=== PATIENT | female | born 1945 | race Caucasian/White ===

== ENCOUNTER 2018-11-21 06:49 | Observation (INO) ==
[2018-11-21] MEDS ORDERED: 0.9 % Sodium Chloride 1,000 ML IVC ONE (07:47)
--- NOTE | 2018-11-21 07:50 | Emergency Department Note ---
Disposition Clinical Impression: Pyelonephritis Disposition: Admitted As Inpatient Condition: Good Time of Disposition: 10:31 General Adult HPI - General Chief complaint: ED General Medical Stated complaint: "Sick with the chills" Time Seen by Provider: 11/21/18 07:16 Source: patient Mode of arrival: private vehicle Limitations: no limitations Nursing Notes Reviewed: Yes Vital Signs Reviewed: Yes - History of Present Illness HPI Narrative: Patient is a 73-year-old female with no significant past medical history that is coming in today complaining of chills, worsening urinary symptoms. Patient states that she developed the symptoms of a urinary tract infection approximately one week ago, her primary complaint was frequency, and a foul odor to her urine. Patient tried taking cranberry juice as well as [id number] Azo tablets without relief. Patient states that Thursday night, 3 days ago, she developed severe headache, back pain, chills. Patient states that the last time she had a UTI was approximately 3 years ago, she has never had to be hospitalized for these issues. Patient's main urinary complaints are frequency, she is not complaining of any dysuria. Patient also complains of not really being able to eat or drink anything since Thursday, and she believes that she may also be dehydrated. Patient also states that she has had some nasal congestion over the last couple of days, but denies sore throat, cough, runny nose. Patient also states that she felt a little nauseated yesterday, but denies vomiting, constipation, diarrhea. Pain Scale: 9 - Related Data Home Medications Medication Instructions Recorded Confirmed Calcium Carbonate/Vitamin D3 1 each PO BID 11/21/18 11/21/18 [Calcium 600 + Vit D Tablet] Cranberry Fruit Extract [Cranberry] 250 mg PO DAILY 11/21/18 11/21/18 Diphenoxylate/Atropine [Lomotil 1 each PO BID PRN 11/21/18 11/21/18 2.5 mg/0.025 mg] Multivit W-Mn/FA/Lycop/Lut/Ala 1 each PO DAILY 11/21/18 11/21/18 [Multi-Betic Tablet] Ranitidine HCl [Acid Cook Tortilla] 150 mg PO HS 11/21/18 11/21/18 Vit A/Vit C/Vit E/Zinc/Copper 1 each PO DAILY 11/21/18 11/21/18 [Preservision Areds Tablet] Allergies Allergy/AdvReac Type Severity Reaction Status Date / Time No Known Allergies Allergy Verified 01/09/16 10:38 Review of Systems: All systems ED: reviewed and negative except as stated. Constitutional: Denies: fever Reports: chills ENT ED: Denies: ear pain, throat pain Reports: nasal congestion Cardiovascular: Denies: chest pain, palpitations Respiratory: Denies: cough, dyspnea Gastrointestinal: Denies: abdominal pain, vomiting, diarrhea, constipation Reports: nausea Genitourinary: Denies: urgency, dysuria, Reports: frequency Musculoskeletal: Denies: neck pain Reports: lower middle back pain Integumentary: Denies: rash, abrasion Neurological: Denies: weakness, numbness, paresthesias Reports: headache Psychiatric: Denies: anxiety, depression Endocrine: Denies: fatigue, heat or cold intolerance Hematological/Lymphatic: Denies: easy bleeding, easy bruising Allergic/Immunologic: Denies: facial swelling, urticaria Past Medical History - Past Medical History Medical history: Reports: GERD, hyperlipidemia Psychiatric history: Reports: no psych history - Social History Smoking Status: Former smoker Smokeless Tobacco Status: No Alcohol use: Reports: none Drug use: Reports: none Physical Exam General: A&O x 3. No acute distress. Well developed, well nourished. Head: atraumatic, normocephalic. ENT: No conjunctival injection, no scleral icterus. PERRLA. EOMI. Oropharynx non- erythematous. mucous membranes tacky. Neuro: No focal deficits, no speech deficit, no facial droop, mentating well. BUE/BLE Str 5/5. Pulm: Lungs CTAB A/P. No wheezes, rales, ronchi. Cardio: RRR no m/r/g. Chest not tender to palpation. Abd: Soft, non-distended. Normoactive bowel sounds.No guarding. Non rigid. Suprapubic abdominal pain with palpation. Back: Mildly tender to palpation over bilateral CVAs. Extremities: Radial pulses 2+ alis, dorsalis pedis/posterior tibialis 2+ alis. No LE edema. No cyanosis, clubbing. Skin: warm, dry, intact. No rashes. Psych: Appropriate mood and affect. Answers questions appropriately. Cooperative with exam. - General Limitations: no limitations General appearance: alert, in no apparent distress Course Course Narrative: Ddx includes but is not limited to: cystitis, pyelonephritis, urosepsis, dehydration Workup will include but is not limited to: EKG, UA + culture, CBC, BMP, lactic acid, blood cultures, Mg, Phos. Disposition pending. Vital Signs Temperature 98.6 F 11/21/18 06:55 Pulse Rate 102 11/21/18 06:55 Respiratory Rate 18 11/21/18 06:55 Blood Pressure 121/77 11/21/18 06:55 O2 Sat by Pulse Oximetry 95 11/21/18 06:55 Temperature 98.6 F 11/21/18 06:55 Pulse Rate 103 11/21/18 09:03 Respiratory Rate 14 11/21/18 09:03 Blood Pressure 137/78 11/21/18 09:03 O2 Sat by Pulse Oximetry 96 11/21/18 09:03 Oxygen Delivery Oxygen Delivery Room Air Medical Decision Making - MDM Narrative Medical decision making narrative: Pt's lab work revealed a leukocytosis with neutrophil predominance, and UA was consistent with UTI with positive nitrates and leukocyte esterase. Pt was given a 1L NaCl bolus as well as a gram of rocephin to cover for likely urinary pathogens. Pt was admitted to Dr. Liu, hospitalist, who agreed to accept the patient for observation. Patient was given an opportunity to ask questions at bedside and all of their concerns were addressed. Patient verbalized understanding and agreement with plan of care. Pt remained stable while in the department. - Medical Records Medical records reviewed: Yes I reviewed the patient's medical records. - Lab Data Lab results reviewed: Yes I reviewed the patient's lab results. Result diagrams: 11/21/18 07:56 11/21/18 07:56 Lab Results 11/21/18 11/21/18 11/21/18 Range/Units 07:56 07:56 07:56 WBC 18.8 H (4.3-11.1) K/mcL RBC 4.95 (3.82-4.97) M/mcL Hgb 14.3 (11.5-15.4) g/dL Hct 43.9 (35.3-44.9) % MCV 88.7 (83.0-100.0) fL MCH 28.9 (28.0-33.3) pg MCHC 32.6 (31.6-35.5) g/dL RDW 13.4 (11.5-14.5) % Plt Count 229 (140-400) K/mcL MPV 10.0 (9.4-12.4) fL Immature Gran % 0.7 (0-4) % Seg Neutrophils % 82.5 % Lymphocytes % 9.8 % Monocytes % 6.8 % Eosinophils % 0.0 % Basophils % 0.2 % Neutrophils # 15.5 H (1.6-8.9) K/mcL Lymphocytes # 1.9 (0.6-4.6) K/mcL Monocytes # 1.3 (0.0-1.3) K/mcL Eosinophils # 0.0 (0.0-0.6) K/mcL Basophils # 0.0 (0.0-0.2) K/mcL Sodium 135 L (136-145) mEq/L Potassium 3.6 (3.5-5.1) mEq/L Chloride 98 (98-107) mEq/L Carbon Dioxide 25 (23-29) mEq/L BUN 12 (8-23) mg/dL Creatinine 0.79 (0.60-1.20) mg/dL Est GFR ( Amer) > 60 (> 60) Est GFR (Non-Af Amer) > 60 (> 60) BUN/Creatinine Ratio 15 (6-26) Glucose 120 H (70-105) mg/dL Calculated Osmolality 281 (280-300) Lactic Acid 1.9 (0.5-2.2) mmol/L Calcium 9.3 (8.6-10.3) mg/dL Phosphorus 2.2 L (2.7-4.5) mg/dL Magnesium 2.0 (1.6-2.6) mg/dL Troponin I < 0.03 (< 0.04) ng/mL Urine Color (Yellow) Urine Clarity (Clear) Urine pH (5.0-8.0) pH Units Ur Specific [place] (1.010-1.025) Urine Protein (Neg-Trace) mg/dL Urine Glucose (UA) (Normal) mg/dL Urine Ketones (Negative) mg/dL Urine Blood (Negative) Urine Nitrite (Negative) Urine Bilirubin (Negative) Urine Urobilinogen (Normal) mg/dL Ur Leukocyte Esterase (Negative) Urine Microscopic RBC (0-3) per hpf Urine Microscopic WBC (0-3) per hpf Ur Squamous Epith Cells (None-Few) per lpf Urine Bacteria (None-Few) per hpf Hyaline Casts (None-Few) per lpf Ur Culture Indicated? (NO) 11/21/18 Range/Units 09:11 WBC (4.3-11.1) K/mcL RBC (3.82-4.97) M/mcL Hgb (11.5-15.4) g/dL Hct (35.3-44.9) % MCV (83.0-100.0) fL MCH (28.0-33.3) pg MCHC (31.6-35.5) g/dL RDW (11.5-14.5) % Plt Count (140-400) K/mcL MPV (9.4-12.4) fL Immature Gran % (0-4) % Seg Neutrophils % % Lymphocytes % % Monocytes % % Eosinophils % % Basophils % % Neutrophils # (1.6-8.9) K/mcL Lymphocytes # (0.6-4.6) K/mcL Monocytes # (0.0-1.3) K/mcL Eosinophils # (0.0-0.6) K/mcL Basophils # (0.0-0.2) K/mcL Sodium (136-145) mEq/L Potassium (3.5-5.1) mEq/L Chloride (98-107) mEq/L Carbon Dioxide (23-29) mEq/L BUN (8-23) mg/dL Creatinine (0.60-1.20) mg/dL Est GFR ( Amer) (> 60) Est GFR (Non-Af Amer) (> 60) BUN/Creatinine Ratio (6-26) Glucose (70-105) mg/dL Calculated Osmolality (280-300) Lactic Acid (0.5-2.2) mmol/L Calcium (8.6-10.3) mg/dL Phosphorus (2.7-4.5) mg/dL Magnesium (1.6-2.6) mg/dL Troponin I (< 0.04) ng/mL Urine Color Yellow (Yellow) Urine Clarity Cloudy A (Clear) Urine pH 6.0 (5.0-8.0) pH Units Ur Specific [place] 1.012 (1.010-1.025) Urine Protein 100 H (Neg-Trace) mg/dL Urine Glucose (UA) Normal (Normal) mg/dL Urine Ketones 80 H (Negative) mg/dL Urine Blood Moderate H (Negative) Urine Nitrite Positive A (Negative) Urine Bilirubin Negative (Negative) Urine Urobilinogen Normal (Normal) mg/dL Ur Leukocyte Esterase Large H (Negative) Urine Microscopic RBC 5-15 H (0-3) per hpf Urine Microscopic WBC TNTC H (0-3) per hpf Ur Squamous Epith Cells Moderate H (None-Few) per lpf Urine Bacteria Many H (None-Few) per hpf Hyaline Casts None Seen (None-Few) per lpf Ur Culture Indicated? YES A (NO) - EKG Data EKG #1 EKG attestation: Yes I reviewed and interpreted this EKG. EKG results narrative: HR 92, rhythm sinus, axis normal. CA 153, QRS 93, QTc 421. No evidence of ST elevation or depression. No evidence of LVH. Attestation Statement - Attestation Attestation: I, Lucio Severino, examined this patient and my medical decision-making was reviewed with the EMPLOYEE BENEFITS DIRECTOR/PA/Advanced Practice Nurse/Resident Physician. I agree with the documented findings, disposition and treatment plan as described except to the extent set forth below. 73-year-old female presents emergency Department with concerns of fever and chills. Patient states she has increased urinary frequency. She states she had similar symptoms with her previous urinary tract infection. Patient is tachycardic on initial evaluation. She had an elevated white blood cell count. Urinalysis showed likely urinary tract infection. She was given antibiotics in the emergency department for treatment of likely UTI versus pyelonephritis. Patient is comfortable with the plan for admission the hospital for further care and evaluation of possible sepsis.
[2018-11-21 08:05] LABS: Basophils % 0.2 %; Hematocrit 43.9 % (35.3-44.9); Hemoglobin 14.3 g/dL (11.5-15.4); Immature Granulocytes % 0.7 % (0-4); Lymphocytes # 1.9 K/mcL (0.6-4.6); Lymphocytes % 9.8 %; Mean Corpuscular HGB Conc 32.6 g/dL (31.6-35.5); Mean Corpuscular Hemoglobin 28.9 pg (28.0-33.3); Mean Corpuscular Volume 88.7 fL (83.0-100.0); Monocytes # 1.3 K/mcL (0.0-1.3); Monocytes % 6.8 %; Neutrophils # 15.5 K/mcL (1.6-8.9); Platelet Count 229 K/mcL (140-400); Red Blood Count 4.95 M/mcL (3.82-4.97); Red Cell Distribution Width 13.4 % (11.5-14.5); Segmented Neutrophils % 82.5 %
[2018-11-21 08:23] LABS: BUN/Creatinine Ratio 15 (6-26); Blood Urea Nitrogen 12 mg/dL (8-23); Calcium 9.3 mg/dL (8.6-10.3); Carbon Dioxide 25 mEq/L (23-29); Chloride 98 mEq/L (98-107); Glucose 120 mg/dL (70-105); Osmolality,Calculated 281 (280-300); Phosphorous 2.2 mg/dL (2.7-4.5); Potassium 3.6 mEq/L (3.5-5.1); Sodium 135 mEq/L (136-145); Troponin I < 0.03 ng/mL (< 0.04); eGFR For Non-African Americans > 60 (> 60)
[2018-11-21] MEDS ORDERED: Acetaminophen 325 MG TABLET PO ONE (09:09)
[2018-11-21] MEDS ORDERED: cefTRIAXone 1,000 MG in 0.9 % Sodium Chloride Mini Bag 100 ML IVPB ONE (09:11)
[2018-11-21 09:15] LABS: Bilirubin,Urine Negative (Negative); Blood,Urine Moderate (Negative); Clarity,Urine Cloudy (Clear); Color,Urine Yellow (Yellow); Glucose,Urine (UA) Normal (Normal); Ketones,Urine 80 mg/dL (Negative); Leukocyte Esterase,Urine Large (Negative); Nitrite,Urine Positive (Negative); Protein,Urine 100 mg/dL (Neg-Trace); Specific Gravity,Urine 1.012 (1.010-1.025); Urobilinogen,Urine Normal (Normal)
[2018-11-21 09:18] LABS: Bacteria,Urine Many per hpf (None-Few); Hyaline Casts,Urine None Seen per lpf (None-Few); Squamous Epithelial Cell,Urine Moderate per lpf (None-Few); WBC,Urine TNTC per hpf (0-3)
--- NOTE | 2018-11-21 12:41 | Internal Med History&Physical ---
Date of Encounter: 11/21/18 Time of Encounter: 10:00 Internal Medicine - H&P: HPI Chief complaint: Dysuria Admitted From: Home Plans for Post Hospital Care: Home History of present illness: Patient is a 73-year-old female with past medical history significant for IBS, GERD and macular degeneration who presents the ER due to urinary urgency and dysuria. Patient reports of developing lower abdominal discomfort with fever/chills in addition to urinary urgency and dysuria. Patient was concerned that she had UTIs and decided to come to the ER for evaluation. In the ER, patient was found to have leukocytosis with white blood cell count of 18.8 and urinalysis with pyuria. Patient will be admitted to the observation unit for management of UTI. Past Med Surg Social Fam HX - Past Medical History Medical history: GERD, hyperlipidemia Additional medical history: IBS Psychiatric history: no psych history - Past Surgical History Additional surgical history: Ortho- pins elbow - Social History Smoking Status: Former smoker Smokeless Tobacco Status: No Alcohol use: none Drug use: none - Additional Family History Additional family history: Dad coronary arterial disease Internal Medicine - H&P: Meds Biotin Plus-Calcium & Vit D3 08/21/16 [History] Ciprofloxacin HCl [Cipro] 500 mg PO BID #14 tablet 08/21/16 [Rx] Cranberry 08/21/16 [History] Lomotil 2.5 mg/0.025 mg 08/21/16 [History] Pantoprazole Sodium 08/21/16 [History] Reclast 5 MG/100 ML 08/21/16 [History] Simvastatin 08/21/16 [History] Allergy/AdvReac Type Severity Reaction Status Date / Time No Known Allergies Allergy Verified 01/09/16 10:38 All Systems PM: A 10-system review of systems was performed and is negative for pertinent findings except as documented above in the HPI. - Constitutional Vitals: Temp Pulse Resp BP Pulse Ox 98.6 F 96 24 135/73 94 11/21/18 06:55 11/21/18 11:24 11/21/18 11:24 11/21/18 11:24 11/21/18 11:24 Exam: General appearance: Present: A&O X 3, no acute distress - Head Head exam: Present: normocephalic - Eye Eye exam: Present: normal appearance - ENT ENT exam: Present: mucous membranes moist - Respiratory Respiratory exam: Present: CTAB. Absent: accessory muscle use, rales, rhonchi, wheezes - Cardiovascular Cardiovascular exam: Present: RRR, +S1, +S2. Absent: diastolic murmur, gallop, rubs, systolic murmur - GI/Abdominal GI/Abdominal exam: Present: normal bowel sounds, soft, no peritoneal signs. Absent: distended, tenderness - Extremities Exam Extremities exam: Absent: pedal edema - Neurological Exam Neurological exam: Present: alert, oriented X3, no focal deficits. Absent: altered - Psychiatric Psychiatric exam: -normal mood Skin exam: -normal color Internal Med - H&P Results - Labs CBC & Chem 7: 11/21/18 07:56 11/21/18 07:56 Labs: Short CBC 11/21/18 Range/Units 07:56 WBC 18.8 H (4.3-11.1) K/mcL Hgb 14.3 (11.5-15.4) g/dL Hct 43.9 (35.3-44.9) % Plt Count 229 (140-400) K/mcL Neutrophils # 15.5 H (1.6-8.9) K/mcL BMP 11/21/18 07:56 Sodium 135 L Potassium 3.6 Chloride 98 Carbon Dioxide 25 BUN 12 Creatinine 0.79 Glucose 120 H Calcium 9.3 Cardiac Enzymes 11/21/18 Range/Units 07:56 Troponin I < 0.03 (< 0.04) ng/mL Urine 11/21/18 Range/Units 09:11 Urine Color Yellow (Yellow) Urine Clarity Cloudy A (Clear) Urine pH 6.0 (5.0-8.0) pH Units Ur Specific [place] 1.012 (1.010-1.025) Urine Protein 100 H (Neg-Trace) mg/dL Urine Glucose (UA) Normal (Normal) mg/dL - Assessment and Plan (1) UTI (urinary tract infection) Current Visit: Yes Status: Acute Assessment and plan: Patient reports of dysuria and urinary urgency found to have leukocytosis with white blood count of 18.8 and pyuria on urinalysis; urine cultures pending Will continue IV Cipro started in the ER. Qualifiers: Urinary tract infection type: acute cystitis Qualified Code(s): N30.00 - Acute cystitis without hematuria (2) IBS (irritable bowel syndrome) Current Visit: Yes Status: Acute Assessment and plan: Continue home medications Qualifiers: Irritable bowel syndrome type: unspecified Qualified Code(s): K58.9 - Irritable bowel syndrome without diarrhea (3) GERD (gastroesophageal reflux disease) Current Visit: Yes Status: Acute Assessment and plan: Continue home medications Qualifiers: Esophagitis presence: esophagitis presence not specified Qualified Code(s): K21.9 - Gastro-esophageal reflux disease without esophagitis (4) DVT prophylaxis Current Visit: Yes Status: Acute Assessment and plan: Subcutaneous heparin - Time Spent With Patient Total time spent is greater than 50% in coordination of care (as documented) at patient's floor/unit and/or counseling patient:
[2018-11-21] MEDS ORDERED: Naloxone 0.4 MG/ML INJ IVP PRN (12:48)
[2018-11-21] MEDS: *HR* Heparin 5,000 UNIT/ML VIAL SQ SCH ×2 (15:10→21:22)
[2018-11-21] MEDS ORDERED: diazePAM 2 MG TABLET PO ONE (21:28)
[2018-11-22 05:30] LABS: Basophils % 0.2 %; Eosinophils % 0.1 %; Hematocrit 34.6 % (35.3-44.9); Immature Granulocytes % 0.7 % (0-4); Lymphocytes # 1.7 K/mcL (0.6-4.6); Lymphocytes % 13.9 %; Mean Corpuscular HGB Conc 33.5 g/dL (31.6-35.5); Mean Corpuscular Hemoglobin 28.6 pg (28.0-33.3); Mean Corpuscular Volume 85.4 fL (83.0-100.0); Monocytes # 1.4 K/mcL (0.0-1.3); Monocytes % 11.3 %; Neutrophils # 9.1 K/mcL (1.6-8.9); Platelet Count 212 K/mcL (140-400); Red Blood Count 4.05 M/mcL (3.82-4.97); Red Cell Distribution Width 13.4 % (11.5-14.5); Segmented Neutrophils % 73.8 %
[2018-11-22 05:38] LABS: Hemoglobin 11.6 g/dL (11.5-15.4)
[2018-11-22 05:49] LABS: BUN/Creatinine Ratio 13 (6-26); Blood Urea Nitrogen 9 mg/dL (8-23); Calcium 8.3 mg/dL (8.6-10.3); Carbon Dioxide 26 mEq/L (23-29); Chloride 100 mEq/L (98-107); Glucose 130 mg/dL (70-105); Osmolality,Calculated 278 (280-300); Potassium 3.5 mEq/L (3.5-5.1); Sodium 134 mEq/L (136-145); eGFR For Non-African Americans > 60 (> 60)
[2018-11-22] MEDS: *HR* Heparin 5,000 UNIT/ML VIAL SQ SCH ×2 (06:07→14:08)
--- NOTE | 2018-11-22 08:37 | Internal Med Progress Note ---
<Anahy Fontenot N - Last Filed: 11/22/18 14:37> Hospitalist Progress Note - Encounter Date of Encounter: 11/22/18 Time of Encounter: 08:37 - Subjective Interval History: Ms. Angela is a 73-year-old female who presented to the emergency department yesterday for evaluation of UTI-like symptoms. She states that she had been havi ng these symptoms for several days, which she had attempted to treat by increasing her intake of cranberry some: However, she reports that she became "deathly ill" and was beginning to be "out of her head ", which prompted her to bring her to the emergency department. She was found to have s ignificant leukocytosis, with WBC count 18.8 and UA consistent with acute UTI. She was admitted to the hospital and started on IV ciprofloxacin 400mg BID. On evaluation this morning, and patient states that she is feeling much better, and denies any fevers or chills since hospital admission. She reports improvement in symptoms of UTI, including dysuria. She does report that she had "an accident" t his morning in the bathroom, which she attributes to her IBD. She denies any acute complaints or concerns at this time. - Exam Vitals: Temp Pulse Resp BP Pulse Ox 98.5 F 85 15 128/83 96 11/22/18 06:45 11/22/18 06:45 11/22/18 06:45 11/22/18 06:45 11/22/18 07:49 Exam: GENERAL: Well-developed, well-nourished adult female in no acute distress. HEENT: Atraumatic and normocephalic. CARDIOVASCULAR: Regular rate and rhythm. S1 and S2 present. No murmurs, gallops, or rubs. RESPIRATORY: Clear to auscultation bilaterally. Chest rises and falls symmetrically without accessory muscle use. GASTROINTESTINAL: Abdomen is soft and nondistended. He can expresses mild tenderness to palpation in suprapubic area. EXTREMITIES: No clubbing, cyanosis, or edema. SKIN: Warm, dry, and intact. NEUROLOGIC: Alert and oriented x3. Patient is cooperative with exam and answers questions appropriately. No apparent focal deficits. PSYCHIATRIC: Appropriate mood and affect. - Assessment and Plan (1) UTI (urinary tract infection) Current Visit: Yes Status: Acute Assessment and Plan: Improving. Patient presented with initial WBC count 18.8, which has improved to 12.3 this morning. Urinalysis was significant for 100 protein, 80 ketones, moderate blood, positive nitrate, large leukocyte esterase, 5-15 RBC, TNTC WBC, and many bacteria. Preliminary urine culture demonstrates growth of gram-negative rods. Plan: - Continue ciprofloxacin 400mg BID. Anticipate transition to oral antibiotic therapy tomorrow. - Continue to monitor and trend CBC. - Final urine culture pending. Will adjust antibiotic therapy if indicated based on results of culture sensitivities. (2) IBS (irritable bowel syndrome) Current Visit: Yes Status: Acute Assessment and Plan: - Continue home medication of lomotil BID PRN. (3) GERD (gastroesophageal reflux disease) Current Visit: Yes Status: Acute Assessment and Plan: - Continue home medication of ranitidine 150mg QHS. (4) DVT prophylaxis Current Visit: Yes Status: Acute Assessment and Plan: - Heparin 5000units SQ Q8H. - Time Spent with Patient Total time spent is greater than 50% in coordination of care (as documented) at patient's floor/unit and/or counseling patient: Internal Medicine: Result - Labs CBC & Chem 7: 11/22/18 05:07 11/22/18 05:07 Labs: Short CBC 11/22/18 Range/Units 05:07 WBC 12.3 H (4.3-11.1) K/mcL Hgb 11.6 D (11.5-15.4) g/dL Hct 34.6 L (35.3-44.9) % Plt Count 212 (140-400) K/mcL Neutrophils # 9.1 H (1.6-8.9) K/mcL BMP 11/22/18 05:07 Sodium 134 L Potassium 3.5 Chloride 100 Carbon Dioxide 26 BUN 9 Creatinine 0.67 Glucose 130 H Calcium 8.3 L Urine 11/21/18 Range/Units 09:11 Urine Color Yellow (Yellow) Urine Clarity Cloudy A (Clear) Urine pH 6.0 (5.0-8.0) pH Units Ur Specific [place] 1.012 (1.010-1.025) Urine Protein 100 H (Neg-Trace) mg/dL Urine Glucose (UA) Normal (Normal) mg/dL Consult Discharge Plan - Plan Referrals: Kemar Alexander MD [Primary Care Provider] - <Jaleel Salcedo - Last Filed: 11/22/18 19:25> Hospitalist Progress Note - Encounter Date of Encounter: 11/22/18 - Exam Vitals: Temp Pulse Resp BP Pulse Ox 100.1 F H 96 17 135/77 96 11/22/18 14:44 11/22/18 14:44 11/22/18 14:44 11/22/18 14:44 11/22/18 14:44 - Assessment and Plan (1) UTI (urinary tract infection) Current Visit: Yes Status: Acute (2) IBS (irritable bowel syndrome) Current Visit: Yes Status: Acute (3) GERD (gastroesophageal reflux disease) Current Visit: Yes Status: Acute (4) DVT prophylaxis Current Visit: Yes Status: Acute (5) Acute metabolic encephalopathy Current Visit: Yes Status: Resolved - Time Spent with Patient Total time spent is greater than 50% in coordination of care (as documented) at patient's floor/unit and/or counseling patient: Internal Medicine: Result - Labs CBC & Chem 7: 11/22/18 05:07 11/22/18 05:07 Labs: Short CBC 11/22/18 Range/Units 05:07 WBC 12.3 H (4.3-11.1) K/mcL Hgb 11.6 D (11.5-15.4) g/dL Hct 34.6 L (35.3-44.9) % Plt Count 212 (140-400) K/mcL Neutrophils # 9.1 H (1.6-8.9) K/mcL BMP 11/22/18 05:07 Sodium 134 L Potassium 3.5 Chloride 100 Carbon Dioxide 26 BUN 9 Creatinine 0.67 Glucose 130 H Calcium 8.3 L Urine 11/21/18 Range/Units 09:11 Urine Color Yellow (Yellow) Urine Clarity Cloudy A (Clear) Urine pH 6.0 (5.0-8.0) pH Units Ur Specific [place] 1.012 (1.010-1.025) Urine Protein 100 H (Neg-Trace) mg/dL Urine Glucose (UA) Normal (Normal) mg/dL - Attending Attestation I examined this patient and my medical decision-making was reviewed with the Resident Physician on 11/22/18. I agree with the documented findings, dispositi on and treatment plan as described except to the extent set forth below. Ms Angela is currently hospitalized for acute encephalopathy due to UTI. She remains moderate to high risk due to potential for worsening clinical status. Ms Angela is doing better today. She is less confused. No fever or chills. Up and walking. No GI issues. Exam alert comfortable Mucus membranes dry Heart reg and not tachy No wheeze abd soft and nontender No edema I/P 1. Acute encephalopathy - due to UTI - improving 2. UTI - improving with abx. Cx pending. 3. IBS with diarrhea Further diagnoses and plan as above. <Anahy Fontenot - Last Filed: 11/22/18 14:37> (1) UTI (urinary tract infection) Qualifiers: Urinary tract infection type: acute cystitis Qualified Code(s): N30.00 - Acute cystitis without hematuria (2) IBS (irritable bowel syndrome) Qualifiers: Irritable bowel syndrome type: unspecified Qualified Code(s): K58.9 - Irritable bowel syndrome without diarrhea (3) GERD (gastroesophageal reflux disease) Qualifiers: Esophagitis presence: esophagitis presence not specified Qualified Code(s): K21.9 - Gastro-esophageal reflux disease without esophagitis <Jaleel Salcedo A - Last Filed: 11/22/18 19:25> (1) UTI (urinary tract infection) Qualifiers: Urinary tract infection type: acute cystitis Hematuria presence: with hematuria Qualified Code(s): N30.01 - Acute cystitis with hematuria (2) IBS (irritable bowel syndrome) Qualifiers: Irritable bowel syndrome type: with diarrhea Qualified Code(s): K58.0 - Irri table bowel syndrome with diarrhea (3) GERD (gastroesophageal reflux disease) Qualifiers: Esophagitis presence: esophagitis presence not specified Qualified Code(s): K21.9 - Gastro-esophageal reflux disease without esophagitis
[2018-11-22] MEDS ORDERED: Diphenoxylate/Atropine 1 TAB TABLET PO PRN (14:49)
[2018-11-22 15:51] LABS: VBG Ionized Calcium 0.96 mmol/L (1.15-1.35)
--- NOTE | 2018-11-22 16:38 | Electrocardiograph Report ---
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
[2018-11-22] MEDS ORDERED: Famotidine 20 MG TABLET PO SCH (21:00)
[2018-11-23] MEDS: *HR* Heparin 5,000 UNIT/ML VIAL SQ SCH ×2 (05:05→08:34)
[2018-11-23 07:11] VITALS: BP 132/84
[2018-11-23 07:21] LABS: Basophils % 0.5 %; Eosinophils # 0.1 K/mcL (0.0-0.6); Eosinophils % 1.4 %; Hematocrit 35.9 % (35.3-44.9); Hemoglobin 11.9 g/dL (11.5-15.4); Immature Granulocytes % 0.9 % (0-4); Lymphocytes # 1.8 K/mcL (0.6-4.6); Lymphocytes % 22.7 %; Mean Corpuscular HGB Conc 33.1 g/dL (31.6-35.5); Mean Corpuscular Hemoglobin 28.7 pg (28.0-33.3); Mean Corpuscular Volume 86.5 fL (83.0-100.0); Mean Platelet Volume 10.2 fL (9.4-12.4); Monocytes # 0.9 K/mcL (0.0-1.3); Monocytes % 10.9 %; Neutrophils # 5.1 K/mcL (1.6-8.9); Platelet Count 248 K/mcL (140-400); Red Blood Count 4.15 M/mcL (3.82-4.97); Red Cell Distribution Width 13.6 % (11.5-14.5); Segmented Neutrophils % 63.6 %
[2018-11-23 07:39] LABS: BUN/Creatinine Ratio 15 (6-26); Blood Urea Nitrogen 9 mg/dL (8-23); Calcium 8.3 mg/dL (8.6-10.3); Carbon Dioxide 26 mEq/L (23-29); Chloride 101 mEq/L (98-107); Glucose 109 mg/dL (70-105); Osmolality,Calculated 281 (280-300); Phosphorous 1.9 mg/dL (2.7-4.5); Potassium 3.5 mEq/L (3.5-5.1); Sodium 136 mEq/L (136-145); eGFR For Non-African Americans > 60 (> 60)
--- NOTE | 2018-11-23 07:47 | Discharge Summary ---
<Jaleel Salcedo - Last Filed: 11/23/18 14:09> Orders not resulted at time of discharge: Pending orders 11/21/18 07:45 Culture,Blood [BC] Stat Date of Encounter: 11/23/18 - Discharge Diagnosis (1) UTI (urinary tract infection) Priority: Primary Status: Acute Qualifiers: Urinary tract infection type: acute cystitis Hematuria presence: with hematuria Qualified Code(s): N30.01 - Acute cystitis with hematuria (2) IBS (irritable bowel syndrome) Priority: Secondary Status: Acute Qualifiers: Irritable bowel syndrome type: with diarrhea Qualified Code(s): K58.0 - Irritable bowel syndrome with diarrhea (3) GERD (gastroesophageal reflux disease) Priority: Secondary Status: Acute Qualifiers: Esophagitis presence: esophagitis presence not specified Qualified Code(s): K21.9 - Gastro-esophageal reflux disease without esophagitis (4) DVT prophylaxis Priority: Secondary Status: Acute (5) Acute metabolic encephalopathy Priority: Secondary Status: Resolved Hospital course: Ms. Angela is a 73 year old female - Time Spent with Patient Total time spent providing and/or coordinating discharge services: 39min - Discharge Medications Prescriptions: New Ciprofloxacin [Cipro] 500 mg PO BID #5 tablet Lactobacillus Combo No.10 [Probiotic] 1 each PO DAILY #30 capsule Continue Diphenoxylate/Atropine [Lomotil 2.5 mg/0.025 mg] 1 each PO BID PRN PRN Reason: Diarrhea Vit A/Vit C/Vit E/Zinc/Copper [Preservision Areds Tablet] 1 each PO DAILY Ranitidine HCl [Acid Annealer] 150 mg PO HS Multivit W-Mn/FA/Lycop/Lut/Ala [Multi-Betic Tablet] 1 each PO DAILY Cranberry Fruit Extract [Cranberry] 250 mg PO DAILY Calcium Carbonate/Vitamin D3 [Calcium 600 + Vit D Tablet] 1 each PO BID Home Medications: Calcium Carbonate/Vitamin D3 [Calcium 600 + Vit D Tablet] 1 each PO BID 11/21/18 [History] Cranberry Fruit Extract [Cranberry] 250 mg PO DAILY 11/21/18 [History] Diphenoxylate/Atropine [Lomotil 2.5 mg/0.025 mg] 1 each PO BID PRN 11/21/18 [History] Multivit W-Mn/FA/Lycop/Lut/Ala [Multi-Betic Tablet] 1 each PO DAILY 11/21/18 [History] Ranitidine HCl [Acid Annealer] 150 mg PO HS 11/21/18 [History] Vit A/Vit C/Vit E/Zinc/Copper [Preservision Areds Tablet] 1 each PO DAILY 11/21/18 [History] Ciprofloxacin [Cipro] 500 mg PO BID #5 tablet 11/23/18 [Rx] Lactobacillus Combo No.10 [Probiotic] 1 each PO DAILY #30 capsule 11/23/18 [Rx] Allergies/Adverse Reactions: Allergy/AdvReac Type Severity Reaction Status Date / Time No Known Allergies Allergy Verified 01/09/16 10:38 Date of admission: 11/21/18 11:51 Primary care physician: Kemar Alexander MD - Constitutional Vitals: Temp Pulse Resp BP Pulse Ox 98.3 F 82 16 132/84 95 11/23/18 07:08 11/23/18 07:08 11/23/18 07:08 11/23/18 07:08 11/23/18 08:46 - Patient Status Disposition: Home, Self-Care Condition: Good - Discharge Instructions Instructions: Urinary Tract Infection in Women (DC) Follow Up With: Kemar Alexander MD [Primary Care Provider] - (Web request sent. Office will call patient with date and time of appointment. Thank you) Additional Instructions: Follow up with your PCP in 3-5 days for reevaluation. Continue to take ciprofloxacin 500mg twice daily until finished. Return to the emergency department if you develop fevers, chills, urinary pain, frequency, urgency, or if new concern arise. - Attending Attestation I examined this patient and my medical decision-making was reviewed with the Resident Physician on 11/23/18 . I agree with the documented findings, disposition and treatment plan as described except to the extent set forth below. Ms Angela has been admitted for acute encephalopathy related to UTI. She is now afebrile and at baseline mental status. She will complete course of abx. She is to be discharged today. Exam alert Comfortable Mucus membranes dry Heart reg and not tachy No wheeze abd soft Plan D/C home today. Education on UTI given Complete course of Cipro Probiotic added Follow up with PCP. <Anahy Fontenot N - Last Filed: 11/23/18 15:40> - NOTES TO OUTPATIENT PROVIDER Notes to Outpatient Provider: Patient was admitted to the hospital for management of acute UTI. Symptoms improved with ciprofloxacin twice a day. She was discharged home with prescription to complete 5 day course of therapy. Orders not resulted at time of discharge: Pending orders 11/21/18 07:45 Culture,Blood [BC] Stat Date of Encounter: 11/23/18 Time of Encounter: 07:47 - Discharge Diagnosis (1) UTI (urinary tract infection) Priority: Primary Status: Acute Qualifiers: Urinary tract infection type: acute cystitis Hematuria presence: with hematuria Qualified Code(s): N30.01 - Acute cystitis with hematuria (2) IBS (irritable bowel syndrome) Priority: Secondary Status: Acute Qualifiers: Irritable bowel syndrome type: with diarrhea Qualified Code(s): K58.0 - Irritable bowel syndrome with diarrhea (3) GERD (gastroesophageal reflux disease) Priority: Secondary Status: Acute Qualifiers: Esophagitis presence: esophagitis presence not specified Qualified Code(s): K21.9 - Gastro-esophageal reflux disease without esophagitis (4) DVT prophylaxis Priority: Secondary Status: Acute (5) Acute metabolic encephalopathy Priority: Secondary Status: Resolved Hospital course: Ms. Angela is a 73-year-old female who presented to the emergency department yesterday for evaluation of UTI-like symptoms. She states that she had been having these symptoms for several days, which she had attempted to treat by increasing her intake of cranberry some: However, she reports that she became "deathly ill" and was beginning to be "out of her head ", which prompted her to bring her to the emergency department. She was found to have significant leukocytosis, with WBC count 18.8 and UA consistent with acute UTI. She was admitted to the hospital and started on IV ciprofloxacin 400mg BID. Urine culture demonstrated growth of Escherichia coli, matias sensitive to multiple antibiotics. On day of discharge, patient denies any fevers, chills, nausea, vomiting, abdominal pain, urinary frequency, urgency, or dysuria. She was discharged home with oral ciprofloxacin 500 mg BID to complete a total 5 day course of therapy. Patient was instructed to follow up with her PCP in 3-5 days for reevaluation. Time spent discussing smoking cessation with patient: 3 to 10 minutes - Time Spent with Patient Total time spent providing and/or coordinating discharge services: Date of admission: 11/21/18 11:51 Primary care physician: Kemar Alexander MD Discharging clinician: Anahy Fontenot Anticipated date of discharge: 11/23/18 - Constitutional Vitals: Temp Pulse Resp BP Pulse Ox 98.3 F 82 16 132/84 95 11/23/18 07:08 11/23/18 07:08 11/23/18 07:08 11/23/18 07:08 11/23/18 07:08 Exam: GENERAL: Well-developed, well-nourished adult female in no acute distress. HEENT: Atraumatic and normocephalic. CARDIOVASCULAR: Regular rate and rhythm. S1 and S2 present. No murmurs, gallops, or rubs. RESPIRATORY: Clear to auscultation bilaterally. Chest rises and falls symmetrically without accessory muscle use. GASTROINTESTINAL: Abdomen is soft and nondistended. He can expresses mild tenderness to palpation in suprapubic area. EXTREMITIES: No clubbing, cyanosis, or edema. SKIN: Warm, dry, and intact. NEUROLOGIC: Alert and oriented x3. Patient is cooperative with exam and answers questions appropriately. No apparent focal deficits. PSYCHIATRIC: Appropriate mood and affect. - Patient Status Functional capacity at discharge: independent ambulation Overall status at discharge: patient is progressing back to baseline
== END 2018-11-23 14:59 | disposition home or self-care (01) ==
LOC: 3ANU 06:49 → EMEROOARM 06:49 → SUATTDRO 11:51 → 3ANU 14:38
PROVIDERS: ADMIT Hospitalist; ATTEND Internal Medicine

== ENCOUNTER 2020-10-15 16:02 | Inpatient (IN) ==
[2020-10-15] MEDS ORDERED: *HR* FentaNYL (PF) 100 MCG/2 ML VIAL IVP ONE ×2 (16:58→17:54)
[2020-10-15 17:19] LABS: Basophils % 0.3 %; Eosinophils # 0.2 K/mcL (0.0-0.6); Eosinophils % 1.7 %; Hematocrit 30.3 % (35.3-44.9); Hemoglobin 9.6 g/dL (11.5-15.4); Immature Granulocytes % 0.3 % (0-4); Lymphocytes # 2.8 K/mcL (0.6-4.6); Lymphocytes % 30.6 %; Mean Corpuscular HGB Conc 31.7 g/dL (31.6-35.5); Mean Corpuscular Hemoglobin 28.3 pg (28.0-33.3); Mean Corpuscular Volume 89.4 fL (83.0-100.0); Mean Platelet Volume 10.3 fL (9.4-12.4); Monocytes # 0.5 K/mcL (0.0-1.3); Monocytes % 5.7 %; Neutrophils # 5.6 K/mcL (1.6-8.9); Platelet Count 264 K/mcL (140-400); Red Blood Count 3.39 M/mcL (3.82-4.97); Red Cell Distribution Width 13.1 % (11.5-14.5); Segmented Neutrophils % 61.4 %; White Blood Count 9.1 K/mcL (4.3-11.1)
[2020-10-15 17:32] LABS: Calcium 9.7 mg/dL (8.6-10.3); Potassium 4.4 mEq/L (3.5-5.1)
[2020-10-15] MEDS ORDERED: 0.9 % Sodium Chloride 1,000 ML IVC ONE (18:56)
[2020-10-15] MEDS ORDERED: *HR* HYDROmorphone (PF) 1 MG/ML SYRINGE IVP ONE (19:42)
[2020-10-15 20:34] LABS: Potassium,Urine 53.1 mEq/L; Protein/Creatinine Ratio,Urine 0.31 mg/mg (0.00-0.20); Sodium, Urine 77.2 mEq/L
[2020-10-15 20:44] LABS: Bacteria,Urine Moderate per hpf (None-Few); Bilirubin,Urine Negative (Negative); Blood,Urine Negative (Negative); Clarity,Urine Turbid (Clear); Color,Urine Light-Yellow (Yellow); Glucose,Urine (UA) Normal (Normal); Ketones,Urine Negative (Negative); Leukocyte Esterase,Urine Large (Negative); Mucus,Urine Few per lpf (None-Few); Nitrite,Urine Positive (Negative); PH,Urine 5.5 pH Units (5.0-8.0); Protein,Urine Negative (Neg-Trace); RBC,Urine 0-3 per hpf (0-3); Specific Gravity,Urine 1.012 (1.010-1.025); Urobilinogen,Urine Normal (Normal); WBC,Urine TNTC per hpf (0-3)
[2020-10-15] MEDS ORDERED: Naloxone 0.4 MG/ML INJ IVP PRN (21:13)
[2020-10-15] MEDS ORDERED: Ondansetron 4 MG/2 ML VIAL IVP PRN (21:13)
[2020-10-15] MEDS ORDERED: Morphine Sulfate 2 MG/ML SYRINGE IVP PRN (21:15)
[2020-10-15 21:29] LABS: Basophils % 0.2 %; Eosinophils % 0.1 %; Hematocrit 27.8 % (35.3-44.9); Immature Granulocytes % 0.7 % (0-4); Lymphocytes # 1.5 K/mcL (0.6-4.6); Lymphocytes % 9.2 %; Mean Corpuscular HGB Conc 32.4 g/dL (31.6-35.5); Mean Corpuscular Hemoglobin 28.7 pg (28.0-33.3); Mean Corpuscular Volume 88.5 fL (83.0-100.0); Mean Platelet Volume 10.6 fL (9.4-12.4); Monocytes # 0.7 K/mcL (0.0-1.3); Monocytes % 4.3 %; Neutrophils # 13.7 K/mcL (1.6-8.9); Platelet Count 220 K/mcL (140-400); Red Blood Count 3.14 M/mcL (3.82-4.97); Red Cell Distribution Width 12.8 % (11.5-14.5); Segmented Neutrophils % 85.5 %
[2020-10-15 21:41] LABS: Albumin 3.7 g/dL (3.5-5.7); Albumin/Globulin Ratio 1.6 (1.1-2.2); Bilirubin,Indirect 0.3 mg/dL (0.0-1.0); Bilirubin,Total 0.3 mg/dL (0.3-1.0); Globulin 2.3 g/dL (2.4-3.5); Magnesium 1.5 mg/dL (1.6-2.6); Phosphorous 3.5 mg/dL (2.7-4.5)
[2020-10-15] MEDS: 0.9 % Sodium Chloride 1,000 ML IVC SCH (22:27)
[2020-10-16] MEDS ORDERED: hydrOXYzine pamoate 25 MG CAPSULE PO ONE (00:30)
[2020-10-16 02:26] LABS: Basophils % 0.2 %; Eosinophils % 0.1 %; Hematocrit 26.6 % (35.3-44.9); Hemoglobin 8.7 g/dL (11.5-15.4); Immature Granulocytes % 0.5 % (0-4); Lymphocytes # 1.3 K/mcL (0.6-4.6); Lymphocytes % 10.1 %; Mean Corpuscular HGB Conc 32.7 g/dL (31.6-35.5); Mean Corpuscular Hemoglobin 28.8 pg (28.0-33.3); Mean Corpuscular Volume 88.1 fL (83.0-100.0); Mean Platelet Volume 10.5 fL (9.4-12.4); Monocytes # 0.6 K/mcL (0.0-1.3); Monocytes % 4.6 %; Neutrophils # 11.2 K/mcL (1.6-8.9); Platelet Count 223 K/mcL (140-400); Red Blood Count 3.02 M/mcL (3.82-4.97); Red Cell Distribution Width 12.8 % (11.5-14.5); Segmented Neutrophils % 84.5 %; White Blood Count 13.2 K/mcL (4.3-11.1)
[2020-10-16 02:34] LABS: INR 1.1; Prothrombin Time 12.3 Seconds (9.4-12.1)
[2020-10-16 02:37] LABS: Activated Partial Thrombo Time 28.1 Seconds (26.0-36.0)
[2020-10-16 02:46] LABS: Potassium 4.4 mEq/L (3.5-5.1)
[2020-10-16] MEDS ORDERED: Dextrose Gel 15 GM/37.5 ML TUBE PO PRN ×2 (07:55)
[2020-10-16] MEDS ORDERED: D5% in Water 1,000 ML IVC PRN (07:55)
[2020-10-16] MEDS ORDERED: *HR* Dextrose 50 % in Water (Vial) 50 ML VIAL IVP PRN (07:55)
[2020-10-16] MEDS: 0.9 % Sodium Chloride 1,000 ML IVC SCH (10:23)
[2020-10-16] MEDS: cefTRIAXone 1,000 MG in Water for inj. (sterile) 10 ML IVP SCH (10:24)
[2020-10-16] MEDS ORDERED: CeFAZolin Syr 2,000MG/20 ML 2,000 MG/20 ML SYRINGE IVPB ONE (13:36)
[2020-10-16] MEDS: Insulin LISPRO 300 UNITS/3 ML VIAL SUBQ SCH ×2 (13:59→17:41)
[2020-10-16] MEDS ORDERED: Lidocaine HCL 4 ML Topical Solution (Laryng-O-Jet Kit Sterile Pak) TP ONE (15:29)
[2020-10-16] MEDS ORDERED: 0.9 % Sodium Chloride 250 ML IVC SCH (15:30)
[2020-10-16] MEDS ORDERED: Ondansetron 4 MG/2 ML VIAL ONE (15:33)
[2020-10-16] MEDS ORDERED: *HR* Rocuronium Bromide 50 MG/5 ML VIAL ONE (15:33)
[2020-10-16] MEDS ORDERED: *HR* Propofol 200 MG/20 ML VIAL IVP ONE (15:33)
[2020-10-16] MEDS ORDERED: Dexamethasone 4 MG/ML VIAL ONE (15:33)
[2020-10-16] MEDS ORDERED: *HR* FentaNYL (PF) 100 MCG/2 ML VIAL ONE (15:33)
[2020-10-16] MEDS ORDERED: Lidocaine -MPF 2% 2 ML VIAL ONE (15:33)
[2020-10-16] MEDS ORDERED: Acetaminophen IV 1,000 MG/100 ML BAG IVPB ONE (16:34)
[2020-10-16] MEDS ORDERED: *HR* Vasopressin 20 UNIT/ML VIAL ONE (16:34)
[2020-10-16] MEDS ORDERED: Povidone-Iodine 45 ML, Sodium Chloride IRRigation 1,000 ML IR ONE (16:45)
[2020-10-16] MEDS ORDERED: TOTAL JOINT MIXTURE (100ML) INTRAART ONE (16:45)
[2020-10-16] MEDS ORDERED: Ondansetron 4 MG/2 ML VIAL IVP PRN (16:56)
[2020-10-16] MEDS ORDERED: *HR* Meperidine 25 MG/ML SYRINGE IVP PRN (16:56)
[2020-10-16] MEDS: *HR* HYDROmorphone (PF) 1 MG/ML SYRINGE IVP PRN ×2 (20:24→20:31)
[2020-10-17] MEDS: ceFAZolin 2,000 MG in 0.9 % Sodium Chloride 100 ML IVPB SCH ×2 (00:01→07:51)
[2020-10-17] MEDS: Insulin LISPRO 300 UNITS/3 ML VIAL SUBQ SCH ×2 (00:03→05:25)
[2020-10-17 06:38] LABS: Basophils % 0.2 %; Hematocrit 25.7 % (35.3-44.9); Hemoglobin 8.1 g/dL (11.5-15.4); Immature Granulocytes % 0.5 % (0-4); Lymphocytes # 1.3 K/mcL (0.6-4.6); Mean Corpuscular HGB Conc 31.5 g/dL (31.6-35.5); Mean Corpuscular Hemoglobin 28.8 pg (28.0-33.3); Mean Corpuscular Volume 91.5 fL (83.0-100.0); Mean Platelet Volume 10.8 fL (9.4-12.4); Monocytes # 0.9 K/mcL (0.0-1.3); Monocytes % 9.3 %; Neutrophils # 7.4 K/mcL (1.6-8.9); Platelet Count 167 K/mcL (140-400); Red Blood Count 2.81 M/mcL (3.82-4.97); Red Cell Distribution Width 13.6 % (11.5-14.5); White Blood Count 9.6 K/mcL (4.3-11.1)
[2020-10-17 07:00] LABS: Calcium 7.8 mg/dL (8.6-10.3); Magnesium 2.3 mg/dL (1.6-2.6); Phosphorous 3.9 mg/dL (2.7-4.5); Potassium 4.5 mEq/L (3.5-5.1)
[2020-10-17] MEDS: cefTRIAXone 1,000 MG in Water for inj. (sterile) 10 ML IVP SCH (07:42)
[2020-10-17] MEDS ORDERED: Ringers Solution, Lactated 500 ML IVC ONE (07:50)
[2020-10-17] MEDS: *HR* Heparin 5,000 UNIT/ML VIAL SQ SCH ×2 (14:36→21:56)
[2020-10-17] MEDS: ceFAZolin 1,000 MG in 0.9 % Sodium Chloride Mini Bag 100 ML IVPB SCH (16:41)
[2020-10-18 00:47] LABS: Bilirubin,Urine Negative (Negative); Blood,Urine Negative (Negative); Clarity,Urine Clear (Clear); Color,Urine Colorless (Yellow); Glucose,Urine (UA) Normal (Normal); Hyaline Casts,Urine Few per lpf (None Seen); Ketones,Urine Negative (Negative); Leukocyte Esterase,Urine Moderate (Negative); Mucus,Urine Few per lpf (None-Few); Nitrite,Urine Negative (Negative); PH,Urine 6.5 pH Units (5.0-8.0); Protein,Urine Trace mg/dL (Neg-Trace); RBC,Urine 0-3 per hpf (0-3); Specific Gravity,Urine 1.012 (1.010-1.025); Squamous Epithelial Cell,Urine Few per hpf (None-Few); Urobilinogen,Urine Normal (Normal)
[2020-10-18 05:47] LABS: Hematocrit 22.2 % (35.3-44.9); Hemoglobin 7.3 g/dL (11.5-15.4); Mean Corpuscular HGB Conc 32.9 g/dL (31.6-35.5); Mean Corpuscular Hemoglobin 29.3 pg (28.0-33.3); Mean Corpuscular Volume 89.2 fL (83.0-100.0); Mean Platelet Volume 10.3 fL (9.4-12.4); Platelet Count 153 K/mcL (140-400); Red Blood Count 2.49 M/mcL (3.82-4.97); Red Cell Distribution Width 13.2 % (11.5-14.5); White Blood Count 8.6 K/mcL (4.3-11.1)
[2020-10-18] MEDS: *HR* Heparin 5,000 UNIT/ML VIAL SQ SCH ×3 (06:06→22:46)
[2020-10-18] MEDS: ceFAZolin 1,000 MG in 0.9 % Sodium Chloride Mini Bag 100 ML IVPB SCH ×2 (06:07→17:51)
[2020-10-18 08:10] LABS: Magnesium 2.1 mg/dL (1.6-2.6); Potassium 3.8 mEq/L (3.5-5.1)
[2020-10-18] MEDS ORDERED: Ringers Solution, Lactated 1,000 ML IVC ONE (10:17)
[2020-10-18] MEDS ORDERED: 0.9 % Sodium Chloride 250 ML IVC SCH (11:00)
[2020-10-18] MEDS ORDERED: Ringers Solution, Lactated 500 ML IVC ONE (11:00)
[2020-10-18] MEDS ORDERED: 0.9 % Sodium Chloride 250 ML ONE (12:00)
[2020-10-18] MEDS: Sennosides/Docusate Sodium TABLET PO SCH ×2 (12:32→22:46)
[2020-10-19 02:07] LABS: Hematocrit 25.1 % (35.3-44.9); Hemoglobin 8.2 g/dL (11.5-15.4); Mean Corpuscular HGB Conc 32.7 g/dL (31.6-35.5); Mean Corpuscular Hemoglobin 29.4 pg (28.0-33.3); Mean Platelet Volume 10.9 fL (9.4-12.4); Platelet Count 168 K/mcL (140-400); Red Blood Count 2.79 M/mcL (3.82-4.97); Red Cell Distribution Width 13.2 % (11.5-14.5); White Blood Count 9.7 K/mcL (4.3-11.1)
[2020-10-19 02:26] LABS: Calcium 7.9 mg/dL (8.6-10.3); Potassium 3.8 mEq/L (3.5-5.1)
[2020-10-19] MEDS: ceFAZolin 1,000 MG in 0.9 % Sodium Chloride Mini Bag 100 ML IVPB SCH (06:54)
[2020-10-19] MEDS: *HR* Heparin 5,000 UNIT/ML VIAL SQ SCH ×2 (06:59→14:57)
[2020-10-19] MEDS: polyethylene glycoL 3350 17 GM POWD.PACK PO SCH ×2 (09:15→09:29)
[2020-10-19] MEDS: Sennosides/Docusate Sodium TABLET PO SCH (09:15)
[2020-10-19 15:50] VITALS: BP 134/70
[2020-10-19 16:18] LABS: Influenza A PCR Negative (Negative); Influenza B PCR Negative (Negative); Resp. Syncytial Virus PCR Negative (Negative); SARS-CoV-2 by PCR (In House) Negative (Negative)
== END 2020-10-19 18:30 | DRG 481 ==
LOC: EMEROOARM 16:02 → 3NENU 16:02 → SUATTDRO 20:57 → 3NENU 21:45
PROVIDERS: ADMIT Family Medicine; ATTEND Internal Medicine